=== PATIENT | female | born 1985 | race Two or more races ===

== ENCOUNTER 2022-01-29 07:38 | Emergency (ER) | payer BC, OTHER ==
[~2022-01-29] VITALS: Ht 167.6 cm; Wt 63.5 kg
[~2022-01-29 07:38] MED LIST: NORPTMEDS CO
[2022-01-29] MEDS ORDERED: PROMETHAZINE HCL 25 MG/ML 1ML IV ONE (08:15)
[2022-01-29] MEDS ORDERED: MORPHINE SULFATE 4 MG/ML SYR/VIAL IV ONE (08:15)
[2022-01-29] MEDS ORDERED: SODIUM CHLORIDE 0.9% 1,000 ML IV ONE ×2 (09:00)
[2022-01-29 09:20] LABS: Basophils # (auto) 0 10 ^3/uL (0-0.2); Basophils % (auto) 0.3 % (0.0-2.0); Eosinophils # (auto) 0 10 ^3/uL (0-0.8); Eosinophils % (auto) 0.2 % (0.0-7.0); Hematocrit 42.4 % (36.0-46.0); Hemoglobin 14.1 g/dL (12.2-16.2); Lymphocytes # (auto) 1.4 10 ^3/uL (0.4-5.4); Lymphocytes % (auto) 9.2 % (10.0-50.0); Mean Corpuscular Hemoglobin 28.9 pg (28.0-32.0); Mean Corpuscular Hgb Conc. 33.3 g/dL (32.0-36.0); Mean Corpuscular Volume 86.9 fL (80.0-100.0); Monocytes # (auto) 0.3 10 ^3/uL (0-1.3); Monocytes % (auto) 2.2 % (0.0-12.0); Neutrophils # (auto) 13.4 10 ^3/uL (1.6-8.6); Neutrophils % (auto) 88.1 % (37.0-80.0); Red Blood Cells 4.88 10^6/uL (4.0-5.20); Red Cell Distribution Width 13.7 % (11.8-14.3); White Blood Cell 15.2 10^3/uL (4.4-10.8)
[2022-01-29 09:33] LABS: Albumin 3.5 g/dL (3.4-5.0); Calcium 8.6 mg/dL (8.5-10.1); Potassium 3.6 mmol/L (3.5-5.1)
[2022-01-29 09:36] LABS: BUN/Creatinine Ratio 22.1; Bilirubin, Total 0.5 mg/dL (0.2-1.0); Total Protein 7.2 g/dL (6.4-8.2)
[2022-01-29] MEDS ORDERED: TAMSULOSIN HYDROCHLORIDE 0.4 MG CAP PO ONE (09:45)
[2022-01-29] MEDS ORDERED: HYDROmorphone HCL 2 MG/ML VL/or syr IV ONE ×2 (09:45→11:00)
[2022-01-29 11:40] VITALS: BP 113/70
== END 2022-01-29 10:22 | disposition short-term general hospital (02) ==
LOC: ER 07:38 → EDBD 07:38 → ER 10:22
DX: K56.609 Unspecified intestinal obstruction, unspecified as to partial versus complete obstruction (principal); N20.0 Calculus of kidney; Z90.89 Acquired absence of other organs; Z98.51 Tubal ligation status; Z20.822 Contact with and (suspected) exposure to COVID-19
CPT/HCPCS: 36415; 74176; 80053; 83690; 85025; 87426; 96361; 96374; 96375; 96376; 99285; J1170; J2270; J2550; J7030